=== PATIENT | male | born 1985 | race Caucasian/White ===

== ENCOUNTER 2017-09-11 19:57 | Inpatient (IN) | payer OTHER, BC ==
[2017-09-11 19:50] VITALS: O2SAT 100
[2017-09-11 20:18] LABS: AUTOMATED NEUTROPHIL # 6.3 TH/MM3 (1.8-7.7); BASOPHIL # 0.1 TH/MM3 (0-0.2); BASOPHIL % 0.8 % (0.0-2.0); EOSINOPHIL # 0.1 TH/MM3 (0-0.4); EOSINOPHIL % 1.1 % (0.0-4.0); HEMATOCRIT 49.3 % (39.0-51.0); HEMOGLOBIN 17.2 GM/DL (13.0-17.0); LYMPH % 25.7 % (9.0-44.0); LYMPHOCYTE # 2.5 TH/MM3 (1.0-4.8); MEAN CELL VOLUME 88.6 FL (80.0-100.0); MEAN CORPUSCULAR HEMOGLOBIN 30.9 PG (27.0-34.0); MEAN CORPUSCULAR HGB CONC 34.8 % (32.0-36.0); MEAN PLATELET VOLUME 9.1 FL (7.0-11.0); MONOCYTE # 0.7 TH/MM3 (0-0.9); NEUT % 65.4 % (16.0-70.0); PLATELET COUNT 262 TH/MM3 (150-450); RED BLOOD COUNT 5.56 MIL/MM3 (4.50-5.90); RED CELL DISTRIBUTION WIDTH 13.5 % (11.6-17.2); WHITE BLOOD COUNT 9.6 TH/MM3 (4.0-11.0)
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
[2017-09-11 20:31] LABS: INTERNATIONAL NORMALIZED RATIO 1.1 RATIO; PROTHROMBIN TIME - PATIENT 10.7 SEC (9.8-11.6)
[2017-09-11] MEDS ORDERED: IOHEXOL 350 MG/ML 10 ML VIAL (for RAD DIAG) IVCONTRAST ONE (20:40)
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
[2017-09-11] MEDS ORDERED: LIDOCAINE 2%/EPINEPHrine 1:100,000 50ML MDV NERV BLOCK ONE (21:15)
[2017-09-11] MEDS ORDERED: LIDOCAINE 1%/EPINEPHrine 1:100,000 SOLN 30 ML VIAL ONE (21:15)
--- NOTE | 2017-09-11 21:28 | PD ---
Physical Exam Date Seen by Provider: Sep 11, 2017 Time Seen by Provider: 21:27 Narrative For full history and physical examination please see previous provider's note. Data Data Orders Orders Fentanyl Inj (Fentanyl Inj) (09/11/17 19:59) I-Stat Profile (09/11/17 20:02) Complete Blood Count With Diff (09/11/17 20:02) Prothrombin Time / Inr (Pt) (09/11/17 20:02) Act Partial Throm Time (Ptt) (09/11/17 20:02) Type And Screen (09/11/17 20:02) Chest, Single Ap (09/11/17 20:02) Pelvis, Ap Only (Routine) (09/11/17 20:02) Ct Brain W/O Iv Contrast(Rout) (09/11/17 20:02) Ct Abd/Pel W Iv Contrast(Rout) (09/11/17 20:02) Ct Thorax/ Chest W Iv Contrast (09/11/17 20:02) Ct Facial Bones W/O Iv Cont (09/11/17 20:02) Iv Access Insert/Monitor (09/11/17 20:02) Ecg Monitoring (09/11/17 20:02) Oximetry (09/11/17 20:02) Oxygen Administration (09/11/17 20:02) Ct Cerv Spine W/O Contrast (09/11/17 ) Tibia/Fibula (Ap/Lat) (09/11/17 ) Cta Runoff W Iv Contrast W 3d (09/11/17 ) Iohexol 350 Inj (Omnipaque 350 Inj) (09/11/17 20:40) Admit Order (Ed Use Only) (09/11/17 20:54) Labs Laboratory Tests Test 09/11/17 20:00 White Blood Count 9.6 TH/MM3 Red Blood Count 5.56 MIL/MM3 Hemoglobin 17.2 GM/DL Bedside Hemoglobin 17.0 G/DL Hematocrit 49.3 % Bedside Hematocrit 50.0 % Mean Corpuscular Volume 88.6 FL Mean Corpuscular Hemoglobin 30.9 PG Mean Corpuscular Hemoglobin Concent 34.8 % Red Cell Distribution Width 13.5 % Platelet Count 262 TH/MM3 Mean Platelet Volume 9.1 FL Neutrophils (%) (Auto) 65.4 % Lymphocytes (%) (Auto) 25.7 % Monocytes (%) (Auto) 7.0 % Eosinophils (%) (Auto) 1.1 % Basophils (%) (Auto) 0.8 % Neutrophils # (Auto) 6.3 TH/MM3 Lymphocytes # (Auto) 2.5 TH/MM3 Monocytes # (Auto) 0.7 TH/MM3 Eosinophils # (Auto) 0.1 TH/MM3 Basophils # (Auto) 0.1 TH/MM3 CBC Comment DIFF FINAL Differential Comment Prothrombin Time 10.7 SEC Prothromb Time International Ratio 1.1 RATIO Activated Partial Thromboplast Time 24.0 SEC Bedside Sodium 144 MMOL/L Bedside Potassium 4.1 MMOL/L Bedside Chloride 104 MMOL/L Bedside Blood Urea Nitrogen 18 MG/DL Bedside Creatinine 1.7 MG/DL Bedside Glucose 145 MG/DL [facility] Medical Record Reviewed: Yes Supervised Visit with MARIYA: Yes Procedures Procedure Narrative LACERATION LOCATION: Left occipital LENGTH: 3 cm NUMBER OF STITCHES/PENNY: 7 [place] REPAIR: The area of the laceration was prepped with Betadine and sterilely draped. The laceration was infiltrated with Percent lidocaine with epi. The wound was copiously irrigated and explored without evidence of foreign body, tendon injury or neurovascular injury. The wound was closed using penny. This was a 1 layer repair. A sterile dressing was applied. The patient was advised to keep the dressing clean and dry. Patient tolerated the procedure well. Karen Paz Sep 11, 2017 21:28
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
[2017-09-11] MEDS ORDERED: PANTOPRAZOLE SODIUM 40 MG VIAL IVP SCH (22:30)
[2017-09-11] MEDS ORDERED: SODIUM CHLORIDE 0.9% FLUSH 10 ML FLUSH IV FLUSH PRN (22:30)
[2017-09-11] MEDS ORDERED: ONDANSETRON HCL 4 MG/2 ML VIAL IV PUSH PRN (22:30)
[2017-09-11] MEDS ORDERED: MISCELLANEOUS NURSING INFORMATION XX SCH (22:30)
[2017-09-11] MEDS ORDERED: CHLORHEXIDINE GLUCONATE 2 % 1 PACK (2 CLOTHS) TOP PRN (22:30)
[2017-09-11] MEDS ORDERED: ENALAPRILAT 1.25 MG/ML VIAL IV PUSH PRN (22:30)
[2017-09-11] MEDS ORDERED: HYDROmorphone HCL PF 2 MG/ML VIAL IV PRN (22:30)
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
[2017-09-12] MEDS: GENTAMICIN INJ 80 MG in SODIUM CHLORIDE 0.9% INJ 100 ML IV SCH ×3 (01:49→21:29)
[2017-09-12] MEDS: SODIUM CHLOR 0.9% 1000 ML INJ 1,000 ML IV SCH ×2 (01:50→05:14)
[2017-09-12 02:00] VITALS: RESP 18; O2SAT 95
[2017-09-12] MEDS: MULTIVITAMIN INJ 10 ML, THIAMINE INJ 100 MG, FOLIC ACID INJ 1 MG in SODIUM CHLORID 0.9%... IV SCH (02:29)
[2017-09-12 02:33] VITALS: BP 145/91; PULSE 97; RESP 18; O2SAT 96
[2017-09-12] MEDS: HYDROmorphone HCL PF 2 MG/ML VIAL IV PRN ×2 (02:47→07:59)
--- NOTE | 2017-09-12 03:47 | PD.CAR.PN ---
CVT Progress Note Subjective/Hospital Course: Patient with open tib-fib fracture and on CTA with runoff peroneal artery appears to be occluded I reviewed the CTA and discussed this with Dr. Marroquin From a vascular point occlusion of the peroneal artery is not hemodynamically significant along the patient has viable anterior and posterior tibial arteries If at the time of ex-fix placement or ORIF there is any issue about vascular blood supply on the table I will be available to come assist the orthopedic surgeon and deal the with the vascular issues Objective: Vital Signs Date Time Temp Pulse Resp B/P (MAP) Pulse Ox O2 Delivery O2 Flow Rate FiO2 09/12/17 02:33 97 18 145/91 (109) 96 Room Air 09/12/17 02:00 18 95 Room Air 09/12/17 02:00 95 Room Air 09/11/17 19:50 100 3.00 Labs: Laboratory Tests Test 09/11/17 20:00 White Blood Count 9.6 TH/MM3 (4.0-11.0) Red Blood Count 5.56 MIL/MM3 (4.50-5.90) Hemoglobin 17.2 GM/DL (13.0-17.0) Bedside Hemoglobin 17.0 G/DL (13.0-17.0) Hematocrit 49.3 % (39.0-51.0) Bedside Hematocrit 50.0 % (39.0-51.0) Mean Corpuscular Volume 88.6 FL (80.0-100.0) Mean Corpuscular Hemoglobin 30.9 PG (27.0-34.0) Mean Corpuscular Hemoglobin Concent 34.8 % (32.0-36.0) Red Cell Distribution Width 13.5 % (11.6-17.2) Platelet Count 262 TH/MM3 (150-450) Mean Platelet Volume 9.1 FL (7.0-11.0) Neutrophils (%) (Auto) 65.4 % (16.0-70.0) Lymphocytes (%) (Auto) 25.7 % (9.0-44.0) Monocytes (%) (Auto) 7.0 % (0.0-8.0) Eosinophils (%) (Auto) 1.1 % (0.0-4.0) Basophils (%) (Auto) 0.8 % (0.0-2.0) Neutrophils # (Auto) 6.3 TH/MM3 (1.8-7.7) Lymphocytes # (Auto) 2.5 TH/MM3 (1.0-4.8) Monocytes # (Auto) 0.7 TH/MM3 (0-0.9) Eosinophils # (Auto) 0.1 TH/MM3 (0-0.4) Basophils # (Auto) 0.1 TH/MM3 (0-0.2) CBC Comment DIFF FINAL Differential Comment Prothrombin Time 10.7 SEC (9.8-11.6) Prothromb Time International Ratio 1.1 RATIO Activated Partial Thromboplast Time 24.0 SEC (24.3-30.1) Bedside Sodium 144 MMOL/L (137-144) Bedside Potassium 4.1 MMOL/L (3.6-5.0) Bedside Chloride 104 MMOL/L (102-111) Bedside Blood Urea Nitrogen 18 MG/DL (5-21) Bedside Creatinine 1.7 MG/DL (0.6-1.3) Bedside Glucose 145 MG/DL (68-110) Result Diagram: 09/11/171999 Edelmira Trinh MD Sep 12, 2017 03:47
[2017-09-12] MEDS ORDERED: CHLORHEXIDINE GLUCONATE 2 % 1 PACK (2 CLOTHS) TOP SCH (04:00)
[2017-09-12 06:44] VITALS: BP 176/77; PULSE 104; RESP 16; O2SAT 94
[2017-09-12 08:00] VITALS: BP 158/87; PULSE 107; RESP 20; O2SAT 95
[2017-09-12 08:36] LABS: AUTOMATED NEUTROPHIL # 15.3 TH/MM3 (1.8-7.7); BASOPHIL % 0.1 % (0.0-2.0); HEMATOCRIT 46.1 % (39.0-51.0); HEMOGLOBIN 15.7 GM/DL (13.0-17.0); LYMPH % 4.1 % (9.0-44.0); LYMPHOCYTE # 0.7 TH/MM3 (1.0-4.8); MEAN CELL VOLUME 89.6 FL (80.0-100.0); MEAN CORPUSCULAR HEMOGLOBIN 30.4 PG (27.0-34.0); MEAN PLATELET VOLUME 9.6 FL (7.0-11.0); NEUT % 89.8 % (16.0-70.0); PLATELET COUNT 226 TH/MM3 (150-450); RED BLOOD COUNT 5.15 MIL/MM3 (4.50-5.90); RED CELL DISTRIBUTION WIDTH 13.6 % (11.6-17.2); WHITE BLOOD COUNT 17.1 TH/MM3 (4.0-11.0)
[2017-09-12] MEDS: DOCUSATE SODIUM 50 MG/SENNA 8.6 MG TAB PO SCH ×2 (09:00→21:29)
[2017-09-12] MEDS: MAGNESIUM HYDROXIDE SUSP 30 ML CUP PO SCH ×2 (09:00→21:29)
[2017-09-12] MEDS: FAMOTIDINE 20 MG TAB PO SCH ×2 (09:00→21:29)
[2017-09-12 09:07] LABS: ALBUMIN 4.2 GM/DL (3.4-5.0); AST (GOT) 35 U/L (15-37); BICARBONATE 18.7 MEQ/L (21.0-32.0); BLOOD UREA NITROGEN 21 MG/DL (7-18); CALCIUM 9.3 MG/DL (8.5-10.1); CHLORIDE 109 MEQ/L (98-107); CREATININE 1.32 MG/DL (0.60-1.30); GLOMERULAR FILTRATION RATE 47 ML/MIN (>89); GLUCOSE,RANDOM 116 MG/DL (74-106); SODIUM (NA) 144 MEQ/L (136-145)
[2017-09-12 09:08] LABS: ALT (GPT) 39 U/L (12-78)
[2017-09-12 09:10] LABS: ALKALINE PHOSPHATASE 71 U/L (45-117); TOTAL BILIRUBIN ADULT 0.8 MG/DL (0.2-1.0); TOTAL PROTEIN 7.6 GM/DL (6.4-8.2)
[2017-09-12] MEDS ORDERED: ACETAMINOPHEN 1000 MG/100 ML 100 ML IV ONE (10:26)
[2017-09-12] MEDS ORDERED: VANCOMYCIN HCL 1000 MG VIAL ONE (10:43)
[2017-09-12] MEDS ORDERED: ceFAZolin 2 GM PREMIX 50 ML ONE (10:43)
[2017-09-12] MEDS ORDERED: GENTAMICIN SULFATE 80 MG/2 ML VIAL ONE (10:44)
--- NOTE | 2017-09-12 11:08 | EKG ---
Date Performed: 09/11/2017 Time Performed: 20:42:33 PTAGE: 89 years EKG: Sinus rhythm NORMAL ECG NO PREVIOUS TRACING DOCTOR: Ayaan Ortiz Interpretating Date/Time 09/12/2017 11:07:09
[2017-09-12] MEDS ORDERED: SODIUM CHLORID 0.9% 500 ML IV PRN (11:30)
[2017-09-12] MEDS ORDERED: CHLORHEXIDINE GLUCONATE 2 % 1 PACK (2 CLOTHS) TOPICAL PRN (11:30)
[2017-09-12] MEDS ORDERED: LACTATED RINGER'S 1000 ML IV PRN (11:30)
[2017-09-12] MEDS ORDERED: POVIDONE IODINE 5% (ANTISEPSIS KIT) 4 APPLICATIONS EACH NARE PRN (11:30)
[2017-09-12] MEDS ORDERED: METOPROLOL TARTRATE 25 MG TAB PO PRN (11:30)
[2017-09-12] MEDS ORDERED: ONDANSETRON HCL 4 MG/2 ML VIAL IV ONE (12:00)
[2017-09-12] MEDS ORDERED: LIDOCAINE HCL 1% PF 5 ML SYRINGE OTHER ONE (12:00)
[2017-09-12] MEDS ORDERED: DEXAMETHASONE SOD PHOS 4 MG/ML VIAL IV ONE (12:00)
[2017-09-12] MEDS ORDERED: PROPOFOL 200 MG/20 ML AMP IV ONE (12:00)
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
[2017-09-12] MEDS ORDERED: BACITRACIN TOP OINT 15 GM TUBE ONE (14:29)
[2017-09-12] MEDS ORDERED: diphenhydrAMINE HCL 25 MG CAP PO PRN (14:30)
[2017-09-12] MEDS ORDERED: Post-op Orders (for Pharmacy) XX ONE (14:30)
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
--- NOTE | 2017-09-12 14:41 | PD.OP ---
cc: Carlyle Lopez MD Operative Report Date of Surgery: Sep 12, 2017 Preoperative Diagnosis: Open right tibia fracture, right foot degloving Postoperative Diagnosis: Procedure: Irrigation and debridement of open right tibia fracture, intramedullary nail fixation open right tibia fracture, complex wound closure 30 cm in length of right foot degloving Anesthesia: Gen. Surgeon: Carlyle Lopez Sterile Process Coordinator(s): ANNAMARIE Ashraf PA-C The surgical procedure was assisted by my physician assistant quality manager. My P.A. presence was necessary throughout this case for the manipulation and positioning of the surgical extremity. My P.A. was assisting me throughout the duration of this procedure. The skill set of a physician assistant quality manager was medically necessary to complete this procedure. During the surgical case the surgical scrub tech was working at the back table and the physician assistant quality manager was directly assisting me. Operation and Findings: Implants: ITS [10 ]mm x [405]mm tibial nail Plan of activity: Strict nonweightbearing right leg Patient was seen and examined preoperatively. He was found to have an open right tibia fracture with right heel and foot degloving injury. informed consent was obtained from patient after detailed discussion of risk and benefits. Risks of surgery include bleeding, infection, painful hardware, nonunion, malunion, leg length discrepancy, need for hardware removal, and medical complications associated with anesthesia including blood clots, stroke, heart attack, and were discussed. Operative site was marked. Patient was brought to the operating room placed on or table. Patient received IV antibiotics and was given IV sedation GETA. Operative leg was prepped with alcohol Hibiclens and draped in usual sterile fashion. Timeout procedure was performed Procedure began with irrigation debridement of open fracture. Skin subcutaneous tissue fascia and bone were sharply debrided. Curettes and rongeurs were used to debride the tibial cortex. Overall the wound appeared to be very clean with minimal gross contamination. After excisional debridement was completed, wound was thoroughly irrigated with sterile saline. Pulsatile lavage was used to clean soft tissue and bone. Next attention was turned towards reduction of fracture. A percutaneous clamp was placed around the fracture. Traction was applied. Fracture was reduced. There was comminution of the fracture. The fracture reduced and excellent alignment was achieved. Fracture clamp was used to aid in reduction. Next a 3 cm incision was made proximal to the patella. Quadriceps tendon was split in line with fibers. Cannulas were placed in the patellofemoral joint to protect the articular surface at all times. A guidepin was placed into the tibia and advanced in the tibial canal. Fluoroscopy was used to confirm appropriate guidepin placement. An opening reamer was used to open the tibial canal. A ball-tipped guidewire was advanced down the tibial canal. Guidepin was passed across the fracture site into the center of the distal tibia. Fluoroscopy confirmed guidepin placement. The nail length was now measured. The fracture was now held in a reduced position and the canal was reamed. The canal was reamed up to appropriate size. The tibial nail was now selected and then attached to the insertion handle. The nail was now placed over the guidepin. Next the nail was fully seated. Using perfect st. croix technique 3 distal interlocking screws were placed. Using the insertion handle as a guide 1 proximal interlocking screw was placed. Fluoroscopy confirmed excellent of fracture with well-placed hardware. Incisions and the knee joint were thoroughly irrigated with sterile saline. Fascia was closed with #1 PDS, subcutaneous tissues closed with 3-0 PDS and skin was closed with penny and 3- 0 nylon. Next attention was turned to the right foot. Patient had a large complex degloving of the hindfoot. The heel pad was completely degloved off the calcaneous. The wound was thoroughly irrigated. There was minimal gross contamination. Small areas of tissue were debrided sharply. Wound was thoroughly irrigated with sterile saline. At this point attention was turned to closure of the wound. Patient had large stellate degloving injury. Subcutaneous tissues reapproximated with 3-0 PDS. Skin is closed with 3-0 nylon. A combination of retention suture, vertical mattress suture, and horizontal mattress sutures were utilized. After completion of closure there was minimal skin tension. Sterile dressings were applied. Patient was placed into a well molded well-padded splint. Patient was awakened and transferred to recovery in stable condition. Carlyle Lopez MD Sep 12, 2017 14:41
--- NOTE | 2017-09-12 15:35 | OTSOAPIP ---
TIME SESSION COMPLETED: AM TREATMENT TIME: 0 MINS. CHART REVIEWED. INTERDISCIPLINARY COMMUNICATION: PATIENT WAS NOT AVAILABLE DUE TO HAVING SURGICAL PROCEDURE FOR REPAIR OF RIGHT TIBIA & FIBULA PLAN: WILL SEE PATIENT NEXT TREATMENT DAY Therapist: AJ NO/Phil Signature on file
[2017-09-12] MEDS ORDERED: DO NOT ADM ANY ANTICOAGULANT DRUGS PRN (16:03)
--- NOTE | 2017-09-12 16:06 | PD.ORT.PN ---
Subjective Subjective Remarks POD 0 s/p I&D with complex wound closure and IMN of right tibia stable in PACU Objective Vitals Vital Signs Date Time Temp Pulse Resp B/P (MAP) Pulse Ox O2 Delivery O2 Flow Rate FiO2 09/12/17 08:00 107 20 158/87 (110) 95 Room Air 3.00 09/12/17 06:44 104 16 176/77 (110) 94 Room Air 09/12/17 02:33 97 18 145/91 (109) 96 Room Air 09/12/17 02:00 18 95 Room Air 09/12/17 02:00 95 Room Air 09/11/17 19:50 100 3.00 09/11/17 19:50 100 Nasal Cannula 3.00 I/O 09/11/17 09/11/17 09/11/17 09/12/17 09/12/17 09/12/17 07:00 15:00 23:00 07:00 15:00 23:00 Intake Total 102 ml 1600 ml Output Total 400 ml 150 ml Balance 102 ml -400 ml 1450 ml Intake IV Total 102 ml Other 1600 ml Output Urine Total 400 ml Estimated Blood Loss 150 ml Result Diagram: 09/12/17 0749 09/12/17 0749 Other Results Laboratory Tests Test 09/11/17 20:00 Prothromb Time International Ratio 1.1 RATIO Prothrombin Time 10.7 SEC (9.8-11.6) Imaging Last 24 hours Impressions Pelvis X-Ray 09/11/172001 Signed Impressions: Service Date/Time: August 19:58 - CONCLUSION: Grossly intact pelvis. CT to follow. Vinh Gutierres MD Maxillofacial CT 09/11/172001 Signed Impressions: Service Date/Time: August 20:15 - CONCLUSION: Intact facial bones. Mild sinus disease. Vinh Gutierres MD Head CT 09/11/172001 Signed Impressions: Service Date/Time: August 20:15 - CONCLUSION: Negative noncontrast head CT. Vinh Gutierres MD Chest X-Ray 09/11/172001 Signed Impressions: Service Date/Time: August 19:58 - CONCLUSION: Negative trauma chest x-ray. Chest CT to follow. Vinh Gutierres MD Chest CT 09/11/172001 Signed Impressions: Service Date/Time: August 20:26 - CONCLUSION: No acute thoracic injury. Vinh Gutierres MD Abdomen/Pelvis CT 09/11/172001 Signed Impressions: Service Date/Time: August 20:26 - CONCLUSION: No evidence of acute abdominal injury. Vinh Gutierres MD Objective Remarks RLE: dressings clean and dry. intact. +splint. nvi. Assessment & Plan Assessment and Plan Postop day #0 status post irrigation and debridement with intramedullary nail of open right tibia fracture. Patient also had complex closure of foot and heel degloving injury Strict Nonweightbearing right leg Lovenox IV antibiotics 72 hours Keep right heel floating with no pressure on heel We will change dressing on Friday to evaluate soft tissue Krishan Hong PA/Lead Installer PA Sep 12, 2017 16:05
[2017-09-12] MEDS ORDERED: MIDAZOLAM HCL 2 MG/2 ML VIAL ONE (16:12)
[2017-09-12] MEDS ORDERED: *MEPERIDINE 25 MG INJ VIAL PERIprocedural Use ONLY ONE (16:16)
[2017-09-12] MEDS ORDERED: *morphine SULFATE 4 MG/ML PERIprocedure ONLY ONE ×3 (16:16→17:13)
[2017-09-12] MEDS: LACTATED RINGER'S 1000 ML INJ 1,000 ML IV SCH (16:25)
[2017-09-12] MEDS ORDERED: *LABETALOL HCL 100 MG/20 ML VIAL PERIprocedural Use ONLY ONE (16:33)
--- NOTE | 2017-09-12 17:37 | RADRPT ---
EXAM DATE/TIME: 09/12/2017 14:24 [facility] COMPARISON: No previous studies available for comparison. INDICATIONS : Surgical repair, IM logan placement. MEDICAL HISTORY : None. SURGICAL HISTORY : None. ENCOUNTER: Initial ACUITY: 1 day PAIN SCORE: Non-responsive. LOCATION: Right lower leg. FINDINGS: No postop changes around fixation of the right tibia. Slightly comminuted distal fibular fracture. An kle mortise intact. CONCLUSION: 1. Postoperative logan fixation of the right tibia. Perez Proctor MD on September 12, 2017 at 17:33 Board Certified Radiologist. This report was verified electronically.
[2017-09-12] MEDS: KETOROLAC TROMETHAMINE 30 MG/ML (IVP) VIAL IVP SCH (18:37)
[2017-09-12] MEDS: MORPHINE SULFATE 4 MG/ML INJ IV PUSH PRN ×2 (18:39→22:25)
[2017-09-12] MEDS ORDERED: PERI PO (18:55)
[2017-09-12] MEDS ORDERED: MAGN30S PO (18:55)
[2017-09-12 19:20] VITALS: BP 164/66; PULSE 84; RESP 18; TEMP 96.7; O2SAT 95
[2017-09-12] MEDS ORDERED: ceFAZolin 2 GM PREMIX 50 ML IV SCH (21:00)
[2017-09-12] MEDS: ceFAZolin 2 GM PREMIX 50 ML IV SCH (21:29)
[2017-09-12] MEDS: ACETAMINOPHEN/HYDROcodone 325 MG/10 MG TAB PO PRN (21:31)
[2017-09-12 23:00] VITALS: BP 145/67; PULSE 80; RESP 18; TEMP 96.7; O2SAT 93
[2017-09-13] MEDS: LACTATED RINGER'S 1000 ML INJ 1,000 ML IV SCH ×3 (01:43→23:52)
[2017-09-13] MEDS: MULTIVITAMIN INJ 10 ML, THIAMINE INJ 100 MG, FOLIC ACID INJ 1 MG in SODIUM CHLORID 0.9%... IV SCH (01:43)
[2017-09-13] MEDS: MORPHINE SULFATE 4 MG/ML INJ IV PUSH PRN ×2 (01:44→22:31)
[2017-09-13] MEDS: KETOROLAC TROMETHAMINE 30 MG/ML (IVP) VIAL IVP SCH ×4 (01:45→10:44)
[2017-09-13] MEDS: GENTAMICIN INJ 80 MG in SODIUM CHLORIDE 0.9% INJ 100 ML IV SCH ×3 (04:00→19:43)
[2017-09-13 04:30] VITALS: BP 135/71; PULSE 80; RESP 18; TEMP 97.5; O2SAT 94
[2017-09-13] MEDS: ceFAZolin 2 GM PREMIX 50 ML IV SCH ×3 (06:43→21:00)
[2017-09-13] MEDS: ACETAMINOPHEN/HYDROcodone 325 MG/10 MG TAB PO PRN ×5 (06:45→20:57)
[2017-09-13 06:56] LABS: AUTOMATED NEUTROPHIL # 9.4 TH/MM3 (1.8-7.7); BASOPHIL % 0.4 % (0.0-2.0); HEMOGLOBIN 11.7 GM/DL (13.0-17.0); LYMPH % 9.9 % (9.0-44.0); LYMPHOCYTE # 1.2 TH/MM3 (1.0-4.8); MEAN CELL VOLUME 88.7 FL (80.0-100.0); MEAN CORPUSCULAR HEMOGLOBIN 30.5 PG (27.0-34.0); MEAN CORPUSCULAR HGB CONC 34.3 % (32.0-36.0); MEAN PLATELET VOLUME 9.2 FL (7.0-11.0); MONO % 10.3 % (0.0-8.0); MONOCYTE # 1.2 TH/MM3 (0-0.9); NEUT % 79.4 % (16.0-70.0); PLATELET COUNT 168 TH/MM3 (150-450); RED BLOOD COUNT 3.83 MIL/MM3 (4.50-5.90); RED CELL DISTRIBUTION WIDTH 13.5 % (11.6-17.2); WHITE BLOOD COUNT 11.9 TH/MM3 (4.0-11.0)
[2017-09-13 07:15] LABS: ALKALINE PHOSPHATASE 52 U/L (45-117); ALT (GPT) 24 U/L (12-78); AST (GOT) 26 U/L (15-37); BICARBONATE 26.7 MEQ/L (21.0-32.0); BLOOD UREA NITROGEN 19 MG/DL (7-18); CALCIUM 8.2 MG/DL (8.5-10.1); CHLORIDE 102 MEQ/L (98-107); CREATININE 1.13 MG/DL (0.60-1.30); GLOMERULAR FILTRATION RATE 74 ML/MIN (>89); GLUCOSE,RANDOM 131 MG/DL (74-106); SODIUM (NA) 138 MEQ/L (136-145); TOTAL BILIRUBIN ADULT 0.9 MG/DL (0.2-1.0); TOTAL PROTEIN 6.3 GM/DL (6.4-8.2)
[2017-09-13] MEDS: MAGNESIUM HYDROXIDE SUSP 30 ML CUP PO SCH ×2 (07:41→19:43)
[2017-09-13] MEDS: FAMOTIDINE 20 MG TAB PO SCH ×2 (07:42→19:43)
[2017-09-13] MEDS: DOCUSATE SODIUM 50 MG/SENNA 8.6 MG TAB PO SCH ×2 (07:42→19:43)
[2017-09-13 08:00] VITALS: BP 147/74; PULSE 96; RESP 18; TEMP 98; O2SAT 93
--- NOTE | 2017-09-13 09:14 | PD.ORT.PN ---
Subjective Subjective Remarks Appears comfortable. Family member also at bedside. No complaints. Pain appears well controlled Objective Vitals Vital Signs Date Time Temp Pulse Resp B/P (MAP) Pulse Ox O2 Delivery O2 Flow Rate FiO2 09/13/17 04:30 97.5 80 18 135/71 (92) 94 09/12/17 23:00 96.7 80 18 145/67 (93) 93 09/12/17 19:20 96.7 84 18 164/66 (98) 95 09/12/17 17:15 98.2 95 16 157/75 (102) 95 Nasal Cannula 2 09/12/17 17:00 94 16 176/80 (112) 96 Nasal Cannula 2 09/12/17 16:45 95 18 179/85 (116) 96 Nasal Cannula 3 09/12/17 16:30 98 16 193/89 (123) 96 Nasal Cannula 3 09/12/17 16:15 100 18 194/91 (125) 96 Nasal Cannula 3 09/12/17 16:03 98.8 99 15 179/91 (120) 95 Nasal Cannula 3 I/O 09/12/17 09/12/17 09/12/17 09/13/17 09/13/17 09/13/17 07:00 15:00 23:00 07:00 15:00 23:00 Intake Total 102 ml 2180 ml 2458 ml Output Total 400 ml 150 ml Balance 102 ml -400 ml 2030 ml 2458 ml Intake Oral 480 ml 480 ml IV Total 102 ml 100 ml 1978 ml Other 1600 ml Output Urine Total 400 ml Estimated Blood Loss 150 ml # Voids 2 2 # Bowel Movements 0 0 Result Diagram: 09/13/17 0616 09/13/17 0616 Imaging Last 24 hours Impressions Pelvis X-Ray 09/11/172001 Signed Impressions: Service Date/Time: August 19:58 - CONCLUSION: Grossly intact pelvis. CT to follow. Vinh Gutierres MD Maxillofacial CT 09/11/172001 Signed Impressions: Service Date/Time: August 20:15 - CONCLUSION: Intact facial bones. Mild sinus disease. Vinh Gutierres MD Head CT 09/11/172001 Signed Impressions: Service Date/Time: August 20:15 - CONCLUSION: Negative noncontrast head CT. Vinh Gutierres MD Chest X-Ray 09/11/172001 Signed Impressions: Service Date/Time: August 19:58 - CONCLUSION: Negative trauma chest x-ray. Chest CT to follow. Vinh Gutierres MD Chest CT 09/11/172001 Signed Impressions: Service Date/Time: August 20:26 - CONCLUSION: No acute thoracic injury. Vinh Gutierres MD Abdomen/Pelvis CT 09/11/172001 Signed Impressions: Service Date/Time: August 20:26 - CONCLUSION: No evidence of acute abdominal injury. Vinh Gutierres MD Objective Remarks RLE: dressings clean and dry. intact. +splint. nvi. Assessment & Plan Ortho Post Op Day #: 1 Problem List: Assessment and Plan Status post irrigation and debridement with intramedullary nail of open right tibia fracture. Patient also had complex closure of foot and heel degloving injury: POD #1 PLAN: Strict Nonweightbearing right leg Lovenox IV antibiotics 72 hours Keep right heel floating with no pressure on heel We will change dressing on Friday to evaluate soft tissue Juan Perez MD Sep 13, 2017 09:14
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
[2017-09-13] MEDS ORDERED: BYST5TAB2 PO (11:07)
[2017-09-13] MEDS ORDERED: CANA300T PO (11:07)
[2017-09-13] MEDS ORDERED: GLIP10TA6 PO (11:07)
[2017-09-13 12:00] VITALS: BP 114/72; PULSE 89; RESP 18; TEMP 97.8; O2SAT 98
[2017-09-13] MEDS: ENOXAPARIN SODIUM 30 MG/0.3 ML SYRINGE SQ SCH (14:00)
[2017-09-13 16:00] VITALS: BP 131/56; PULSE 89; RESP 18; TEMP 97.5; O2SAT 95
[2017-09-13] MEDS: GABAPENTIN 300 MG CAP PO SCH (17:01)
[2017-09-13 20:00] VITALS: BP 147/90; PULSE 98; RESP 16; TEMP 97.1; O2SAT 98
[2017-09-14] VITALS: BP 135/72; PULSE 91; RESP 18; TEMP 99.1; O2SAT 96
[2017-09-14] MEDS: MULTIVITAMIN INJ 10 ML, THIAMINE INJ 100 MG, FOLIC ACID INJ 1 MG in SODIUM CHLORID 0.9%... IV SCH (01:21)
[2017-09-14] MEDS: ACETAMINOPHEN/HYDROcodone 325 MG/10 MG TAB PO PRN ×5 (01:22→21:40)
[2017-09-14] MEDS: ENOXAPARIN SODIUM 30 MG/0.3 ML SYRINGE SQ SCH ×2 (03:30→15:44)
[2017-09-14] MEDS: MORPHINE SULFATE 4 MG/ML INJ IV PUSH PRN ×4 (04:05→19:53)
[2017-09-14] MEDS: GENTAMICIN INJ 80 MG in SODIUM CHLORIDE 0.9% INJ 100 ML IV SCH ×3 (05:16→19:54)
[2017-09-14] MEDS: ceFAZolin 2 GM PREMIX 50 ML IV SCH ×3 (05:59→21:38)
[2017-09-14] MEDS: GABAPENTIN 300 MG CAP PO SCH (07:43)
[2017-09-14] MEDS: DOCUSATE SODIUM 50 MG/SENNA 8.6 MG TAB PO SCH ×2 (07:43→19:54)
[2017-09-14] MEDS: FAMOTIDINE 20 MG TAB PO SCH ×2 (07:43→19:54)
[2017-09-14] MEDS: MAGNESIUM HYDROXIDE SUSP 30 ML CUP PO SCH ×2 (07:44→19:54)
[2017-09-14 08:00] VITALS: BP 145/77; PULSE 97; RESP 18; TEMP 98.5; O2SAT 96
--- NOTE | 2017-09-14 08:34 | PD.ORT.PN ---
Subjective Subjective Remarks Appears comfortable. Fianc at bedside. No complaints. Pain appears well controlled Objective Vitals Vital Signs Date Time Temp Pulse Resp B/P (MAP) Pulse Ox O2 Delivery O2 Flow Rate FiO2 09/14/17 00:00 99.1 91 18 135/72 (93) 96 09/13/17 20:00 97.1 98 16 147/90 (109) 98 09/13/17 16:00 97.5 89 18 131/56 (81) 95 09/13/17 12:00 97.8 89 18 114/72 (86) 98 I/O 09/13/17 09/13/17 09/13/17 09/14/17 09/14/17 09/14/17 07:00 15:00 23:00 07:00 15:00 23:00 Intake Total 2458 ml 600 ml 152 ml 1143.2 ml Output Total 275 ml 600 ml Balance 2458 ml 325 ml 152 ml 543.2 ml Intake Oral 480 ml 600 ml 480 ml IV Total 1978 ml 152 ml 663.2 ml Output Urine Total 275 ml 600 ml # Voids 2 1 # Bowel Movements 0 0 0 Result Diagram: 09/13/17 0616 09/13/17 0616 Imaging Last 24 hours Impressions Pelvis X-Ray 09/11/172001 Signed Impressions: Service Date/Time: August 19:58 - CONCLUSION: Grossly intact pelvis. CT to follow. Vinh Gutierres MD Maxillofacial CT 09/11/172001 Signed Impressions: Service Date/Time: August 20:15 - CONCLUSION: Intact facial bones. Mild sinus disease. Vinh Gutierres MD Head CT 09/11/172001 Signed Impressions: Service Date/Time: August 20:15 - CONCLUSION: Negative noncontrast head CT. Vinh Gutierres MD Chest X-Ray 09/11/172001 Signed Impressions: Service Date/Time: August 19:58 - CONCLUSION: Negative trauma chest x-ray. Chest CT to follow. Vinh Gutierres MD Chest CT 09/11/172001 Signed Impressions: Service Date/Time: August 20:26 - CONCLUSION: No acute thoracic injury. Vinh Gutierres MD Abdomen/Pelvis CT 09/11/172001 Signed Impressions: Service Date/Time: August 20:26 - CONCLUSION: No evidence of acute abdominal injury. Vinh Gutierres MD Objective Remarks RLE: dressings clean and dry. intact. +splint. nvi. Assessment & Plan Assessment and Plan Status post irrigation and debridement with intramedullary nail of open right tibia fracture. Patient also had complex closure of foot and heel degloving injury: POD #2 PLAN: Strict Nonweightbearing right leg Lovenox IV antibiotics 72 hours, will stop tomorrow Keep right heel floating with no pressure on heel We will change dressing on Friday to evaluate soft tissue. Patient anxious to be able to make his wedding in [address] [place] Lopez will reevaluate tomorrow Juan Perez MD Sep 14, 2017 08:34
[2017-09-14 09:28] LABS: HEMATOCRIT 32.3 % (39.0-51.0); HEMOGLOBIN 10.9 GM/DL (13.0-17.0)
[2017-09-14 12:00] VITALS: BP 159/85; PULSE 82; RESP 18; TEMP 98.2; O2SAT 97
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
[2017-09-14] MEDS ORDERED: BISACODYL 10 MG SUPP RECTAL ONE (13:30)
[2017-09-14] MEDS: METHOCARBAMOL 500 MG TAB PO SCH ×2 (15:44→21:39)
[2017-09-14 16:00] VITALS: BP 168/87; PULSE 95; RESP 18; TEMP 97.9; O2SAT 95
[2017-09-14] MEDS: LACTATED RINGER'S 1000 ML INJ 1,000 ML IV SCH ×2 (16:30→19:55)
[2017-09-14 17:39] VITALS: O2SAT 97
[2017-09-14] MEDS: GABAPENTIN 400 MG CAP PO SCH (18:00)
[2017-09-14 20:00] VITALS: BP 150/87; PULSE 95; RESP 22; TEMP 98.3; O2SAT 97
[2017-09-15] MEDS: ENOXAPARIN SODIUM 30 MG/0.3 ML SYRINGE SQ SCH ×2 (02:23→15:00)
[2017-09-15] MEDS: GENTAMICIN INJ 80 MG in SODIUM CHLORIDE 0.9% INJ 100 ML IV SCH (02:23)
[2017-09-15] MEDS: ACETAMINOPHEN/HYDROcodone 325 MG/10 MG TAB PO PRN ×6 (02:24→22:53)
[2017-09-15 04:51] LABS: AUTOMATED NEUTROPHIL # 3.5 TH/MM3 (1.8-7.7); BASOPHIL % 0.7 % (0.0-2.0); EOSINOPHIL # 0.3 TH/MM3 (0-0.4); EOSINOPHIL % 5.6 % (0.0-4.0); HEMATOCRIT 31.4 % (39.0-51.0); HEMOGLOBIN 10.8 GM/DL (13.0-17.0); LYMPH % 22.5 % (9.0-44.0); LYMPHOCYTE # 1.3 TH/MM3 (1.0-4.8); MEAN CELL VOLUME 88.4 FL (80.0-100.0); MEAN CORPUSCULAR HEMOGLOBIN 30.5 PG (27.0-34.0); MEAN CORPUSCULAR HGB CONC 34.5 % (32.0-36.0); MEAN PLATELET VOLUME 8.5 FL (7.0-11.0); MONO % 10.4 % (0.0-8.0); MONOCYTE # 0.6 TH/MM3 (0-0.9); NEUT % 60.8 % (16.0-70.0); PLATELET COUNT 160 TH/MM3 (150-450); RED BLOOD COUNT 3.56 MIL/MM3 (4.50-5.90); RED CELL DISTRIBUTION WIDTH 13.1 % (11.6-17.2); WHITE BLOOD COUNT 5.8 TH/MM3 (4.0-11.0)
[2017-09-15] MEDS: METHOCARBAMOL 500 MG TAB PO SCH ×3 (05:36→22:48)
[2017-09-15] MEDS: ceFAZolin 2 GM PREMIX 50 ML IV SCH ×2 (05:37→16:56)
--- NOTE | 2017-09-15 06:30 | PD.ORT.PN ---
Subjective Subjective Remarks POD 3 s/p I&D with complex wound closure and IMN of right tibia resting comfortably. no new complaints. Objective Vitals Vital Signs Date Time Temp Pulse Resp B/P (MAP) Pulse Ox O2 Delivery O2 Flow Rate FiO2 09/14/17 20:00 98.3 95 22 150/87 (108) 97 09/14/17 17:39 97 21 09/14/17 16:00 97.9 95 18 168/87 (114) 95 09/14/17 12:00 98.2 82 18 159/85 (109) 97 09/14/17 08:00 98.5 97 18 145/77 (99) 96 I/O 09/14/17 09/14/17 09/14/17 09/15/17 09/15/17 09/15/17 07:00 15:00 23:00 07:00 15:00 23:00 Intake Total 1143.2 ml 600 ml 800 ml Output Total 600 ml 1000 ml Balance 543.2 ml 600 ml -200 ml Intake Oral 480 ml 600 ml 800 ml IV Total 663.2 ml Output Urine Total 600 ml 1000 ml # Voids 3 # Bowel Movements 0 1 0 Result Diagram: 09/15/17 0433 09/13/17 0616 Imaging Last 24 hours Impressions Pelvis X-Ray 09/11/172001 Signed Impressions: Service Date/Time: August 19:58 - CONCLUSION: Grossly intact pelvis. CT to follow. Vinh Gutierres MD Maxillofacial CT 09/11/172001 Signed Impressions: Service Date/Time: August 20:15 - CONCLUSION: Intact facial bones. Mild sinus disease. Vinh Gutierres MD Head CT 09/11/172001 Signed Impressions: Service Date/Time: August 20:15 - CONCLUSION: Negative noncontrast head CT. Vinh Gutierres MD Chest X-Ray 09/11/172001 Signed Impressions: Service Date/Time: August 19:58 - CONCLUSION: Negative trauma chest x-ray. Chest CT to follow. Vinh Gutierres MD Chest CT 09/11/172001 Signed Impressions: Service Date/Time: August 20:26 - CONCLUSION: No acute thoracic injury. Vinh Gutierres MD Abdomen/Pelvis CT 09/11/172001 Signed Impressions: Service Date/Time: August 20:26 - CONCLUSION: No evidence of acute abdominal injury. Vinh Gutierres MD Objective Remarks RLE: dressings clean and dry. intact. +splint. nvi. splint removed and incisions visualized. healing well. blister over medial calcaneus. Assessment & Plan Assessment and Plan Status post irrigation and debridement with intramedullary nail of open right tibia fracture. Patient also had complex closure of foot and heel degloving injury: POD #3 PLAN: Strict Nonweightbearing right leg Lovenox Keep right heel floating with no pressure on heel new dressing and splint to be applied today plan for DC from hospital today ortho cleared for DC will follow up with Hung on in office before going home to [place] Krishan Hong/[employer] VENKATA Sep 15, 2017 06:30
[2017-09-15 07:49] VITALS: BP 154/82; PULSE 74; RESP 17; TEMP 98.4; O2SAT 96
[2017-09-15] MEDS ORDERED: WALKER WHEELS/F1 MIS (07:53)
[2017-09-15] MEDS ORDERED: WHEEMIS3 (07:53)
[2017-09-15] MEDS: MORPHINE SULFATE 4 MG/ML INJ IV PUSH PRN (08:36)
[2017-09-15] MEDS: DOCUSATE SODIUM 50 MG/SENNA 8.6 MG TAB PO SCH ×2 (08:38→20:02)
[2017-09-15] MEDS: glipiZIDE 10 MG TAB PO SCH (08:38)
[2017-09-15] MEDS: GABAPENTIN 400 MG CAP PO SCH ×3 (08:38→16:54)
[2017-09-15] MEDS: MAGNESIUM HYDROXIDE SUSP 30 ML CUP PO SCH ×2 (08:38→20:01)
[2017-09-15] MEDS: FAMOTIDINE 20 MG TAB PO SCH ×2 (08:38→20:00)
[2017-09-15 08:42] VITALS: O2SAT 93
[2017-09-15] MEDS ORDERED: METH500T3 PO (08:59)
[2017-09-15] MEDS ORDERED: NEUR400C PO (08:59)
[2017-09-15] MEDS ORDERED: HYDR-3583 PO (09:00)
[2017-09-15] MEDS ORDERED: CANAGLIFLOZIN 300 MG PO SCH (09:00)
[2017-09-15] MEDS: NEBIVOLOL 5 MG TAB PO SCH (10:57)
[2017-09-15 12:23] VITALS: BP 159/89; PULSE 91; RESP 18; TEMP 98.8; O2SAT 97
[2017-09-15] MEDS: LACTATED RINGER'S 1000 ML INJ 1,000 ML IV SCH ×2 (12:30→22:30)
[2017-09-15 16:00] VITALS: BP 151/94; PULSE 98; RESP 18; TEMP 97.1; O2SAT 100
[2017-09-15] MEDS ORDERED: XARE10TA PO (16:17)
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
[2017-09-15 20:00] VITALS: BP 157/102; PULSE 99; RESP 21; TEMP 98.5; O2SAT 96
[2017-09-16] MEDS: ENOXAPARIN SODIUM 30 MG/0.3 ML SYRINGE SQ SCH ×2 (03:12→15:58)
[2017-09-16] MEDS: ACETAMINOPHEN/HYDROcodone 325 MG/10 MG TAB PO PRN ×4 (03:13→15:58)
[2017-09-16 04:00] VITALS: BP 140/78; PULSE 78; RESP 20; TEMP 97.7; O2SAT 95
[2017-09-16] MEDS: METHOCARBAMOL 500 MG TAB PO SCH ×2 (05:35→14:02)
[2017-09-16 08:00] VITALS: BP 168/89; PULSE 75; RESP 18; TEMP 97.6; O2SAT 96
[2017-09-16] MEDS: LACTATED RINGER'S 1000 ML INJ 1,000 ML IV SCH (08:30)
[2017-09-16] MEDS: FAMOTIDINE 20 MG TAB PO SCH (08:46)
[2017-09-16] MEDS: DOCUSATE SODIUM 50 MG/SENNA 8.6 MG TAB PO SCH (08:46)
[2017-09-16] MEDS: GABAPENTIN 400 MG CAP PO SCH ×2 (08:46→14:02)
[2017-09-16] MEDS: NEBIVOLOL 5 MG TAB PO SCH (08:46)
[2017-09-16] MEDS: glipiZIDE 10 MG TAB PO SCH (08:46)
[2017-09-16] MEDS: MAGNESIUM HYDROXIDE SUSP 30 ML CUP PO SCH (08:47)
[2017-09-16 12:00] VITALS: BP 150/75; PULSE 70; RESP 17; TEMP 98.4; O2SAT 96
[2017-09-16 14:19] VITALS: RESP 18
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
== END 2017-09-16 16:52 | disposition home or self-care (01) | DRG 494 ==
LOC: NEPI 19:57 → NEDA 20:57 → EDBD 20:57 → NEDH 09-12 01:44 → N06B 09-12 17:28
PROVIDERS: ADMIT Surgery; ATTEND Surgery
PROC: 0HQ0XZZ Repair Scalp Skin, External Approach (ICD-10-PCS; 2017-09-11)
PROC: 0JQQ0ZZ Repair Right Foot Subcutaneous Tissue and Fascia, Open Approach (ICD-10-PCS; 2017-09-12)
PROC: 0QSG06Z Reposition Right Tibia with Intramedullary Internal Fixation Device, Open Approach (ICD-10-PCS; principal; 2017-09-12 12:52)
DX: S82.251B Displaced comminuted fracture of shaft of right tibia, initial encounter for open fracture type I or II (principal); S91.311A Laceration without foreign body, right foot, initial encounter; S01.01XA Laceration without foreign body of scalp, initial encounter; S82.451B Displaced comminuted fracture of shaft of right fibula, initial encounter for open fracture type I or II; V29.9XXA Motorcycle rider (driver) (passenger) injured in unspecified traffic accident, initial encounter
CPT/HCPCS: 12002; 70450; 70486; 71045; 71260; 72125; 72170; 73590; 74177; 75635; 76000; 80048; 80053; 85014; 85018; 85025; 85610; 85730; 86850; 86900; 86901; 90471; 93005; 94150; 96374; 96375; 99291; C1713; C9113; E0113; G0390; J0131; J0690; J1100; J1170; J1580; J1650; J1885; J2175; J2250; J2270; J2405; J3010; J3370; J3411; J7030; J7040; J7120; Q9967